=== PATIENT | male | born 1960 | race Caucasian/White ===

== ENCOUNTER 2021-06-21 10:13 | Inpatient (IN) ==
[2021-06-21] MEDS ORDERED: Ondansetron 4 MG/2 ML VIAL IVP PRN (13:31)
[2021-06-21] MEDS ORDERED: Naloxone 0.4 MG/ML INJ IVP PRN (13:31)
[2021-06-21] MEDS ORDERED: Acetaminophen 325 MG TABLET PO PRN (13:31)
[2021-06-21] MEDS ORDERED: Perflutren Lipid Microsphere 1.3 ML in 0.9 % Sodium Chloride 8.7 ML IVP PRN (13:32)
[2021-06-21] MEDS ORDERED: Nitroglycerin 0.4 MG TAB.SUBL SL PRN (13:33)
[2021-06-21] MEDS: 0.9 % Sodium Chloride 1,000 ML IVC SCH (17:27)
[2021-06-22] MEDS ORDERED: *HR* Enoxaparin 40 MG/0.4 ML SYRINGE SQ SCH (06:00)
[2021-06-22 06:05] LABS: Basophils # 0.1 K/mcL (0.0-0.2); Basophils % 0.9 %; Eosinophils # 0.4 K/mcL (0.0-0.6); Eosinophils % 6.1 %; Hemoglobin 13.9 g/dL (12.9-16.9); Immature Granulocytes % 0.1 % (0-4); Lymphocytes # 1.3 K/mcL (0.6-4.6); Mean Corpuscular HGB Conc 32.3 g/dL (31.6-35.5); Mean Corpuscular Hemoglobin 27.9 pg (28.0-33.3); Mean Corpuscular Volume 86.3 fL (83.0-100.0); Mean Platelet Volume 9.1 fL (9.4-12.4); Monocytes # 0.8 K/mcL (0.0-1.3); Monocytes % 12.1 %; Neutrophils # 4.3 K/mcL (1.6-8.9); Platelet Count 321 K/mcL (140-400); Red Blood Count 4.98 M/mcL (4.19-5.50); Segmented Neutrophils % 61.8 %; White Blood Count 6.9 K/mcL (4.3-11.1)
[2021-06-22 06:25] LABS: BUN/Creatinine Ratio 13 (6-26); Blood Urea Nitrogen 16 mg/dL (8-23); Calcium 9.4 mg/dL (8.6-10.3); Carbon Dioxide 26 mEq/L (23-29); Chloride 108 mEq/L (98-107); Chol/HDL Ratio 4.4 (0-4.9); Cholesterol 148 mg/dL (< 200); Glucose 107 mg/dL (70-105); HDL Cholesterol 34 mg/dL (40-59); LDL Cholesterol,Calculated 95 mg/dL (< 100); Osmolality,Calculated 294 (280-300); Potassium 4.1 mEq/L (3.5-5.1); Sodium 141 mEq/L (136-145); Triglycerides 96 mg/dL (< 150); eGFR For African Americans > 60 (> 60); eGFR For Non-African Americans > 60 (> 60)
[2021-06-22] MEDS ORDERED: Aspirin 81 MG TAB.CHEW PO SCH (09:00)
[2021-06-22] MEDS ORDERED: Famotidine 20 MG TABLET PO SCH ×2 (09:00→21:00)
[2021-06-22] MEDS ORDERED: Loratadine 10 MG TABLET PO SCH (09:00)
[2021-06-22 09:26] LABS: Estimated Average Glucose 126 mg/dl
[2021-06-22] MEDS ORDERED: Nitroglycerin 1,000 MCG/5 ML VIAL IV ONE (10:08)
[2021-06-22] MEDS ORDERED: *HR* Heparin 10,000 UNIT/10 ML VIAL ONE (10:08)
[2021-06-22] MEDS ORDERED: 0.9 % Sodium Chloride 2,000 ML ONE (10:08)
[2021-06-22] MEDS ORDERED: Heparin 1,000 UNITS/500 mL 500 ML ONE (10:08)
[2021-06-22] MEDS ORDERED: ISOVUE-370 200 ML INFUS..BTL ONE (10:08)
[2021-06-22] MEDS ORDERED: *HR* FentaNYL (PF) 100 MCG/2 ML VIAL ONE (11:04)
[2021-06-22] MEDS ORDERED: *HR* Midazolam HCl 2 MG/2 ML VIAL ONE (11:04)
[2021-06-22] MEDS: 0.9 % Sodium Chloride 1,000 ML IVC SCH (17:55)
[2021-06-22] MEDS ORDERED: Nitroglycerin 0.4 MG TAB.SUBL SL PRN (19:54)
[2021-06-22] MEDS ORDERED: Acetaminophen 325 MG TABLET PO PRN (19:54)
[2021-06-22] MEDS ORDERED: Ondansetron 4 MG/2 ML VIAL IVP PRN (19:54)
[2021-06-22] MEDS ORDERED: 0.9 % Sodium Chloride 1,000 ML IVC SCH (19:54)
[2021-06-22] MEDS ORDERED: Naloxone 0.4 MG/ML INJ IVP PRN (19:54)
[2021-06-22] MEDS ORDERED: Perflutren Lipid Microsphere 1.3 ML in 0.9 % Sodium Chloride 8.7 ML IVP PRN (19:54)
[2021-06-22 21:09] LABS: Basophils # 0.1 K/mcL (0.0-0.2); Basophils % 0.8 %; Eosinophils # 0.3 K/mcL (0.0-0.6); Eosinophils % 3.2 %; Hematocrit 40.9 % (37.5-50.1); Hemoglobin 14.1 g/dL (12.9-16.9); Immature Granulocytes % 0.2 % (0-4); Lymphocytes # 1.3 K/mcL (0.6-4.6); Lymphocytes % 15.2 %; Mean Corpuscular HGB Conc 34.5 g/dL (31.6-35.5); Mean Corpuscular Hemoglobin 29.1 pg (28.0-33.3); Mean Corpuscular Volume 84.3 fL (83.0-100.0); Mean Platelet Volume 8.9 fL (9.4-12.4); Monocytes # 0.9 K/mcL (0.0-1.3); Monocytes % 10.2 %; Neutrophils # 6.2 K/mcL (1.6-8.9); Platelet Count 329 K/mcL (140-400); Red Blood Count 4.85 M/mcL (4.19-5.50); Red Cell Distribution Width 12.7 % (11.5-14.5); Segmented Neutrophils % 70.4 %; White Blood Count 8.7 K/mcL (4.3-11.1)
[2021-06-22 21:19] LABS: INR 1.2
[2021-06-22 21:21] LABS: Activated Partial Thrombo Time 32.9 Seconds (26.0-36.0)
[2021-06-22 21:25] LABS: BUN/Creatinine Ratio 16 (6-26); Blood Urea Nitrogen 17 mg/dL (8-23); Calcium 9.4 mg/dL (8.6-10.3); Carbon Dioxide 26 mEq/L (23-29); Chloride 108 mEq/L (98-107); Chol/HDL Ratio 4.7 (0-4.9); Cholesterol 149 mg/dL (< 200); Glucose 93 mg/dL (70-105); HDL Cholesterol 32 mg/dL (40-59); LDL Cholesterol,Calculated 92 mg/dL (< 100); Osmolality,Calculated 291 (280-300); Potassium 3.8 mEq/L (3.5-5.1); Sodium 140 mEq/L (136-145); Triglycerides 125 mg/dL (< 150); eGFR For African Americans > 60 (> 60); eGFR For Non-African Americans > 60 (> 60)
[2021-06-22] MEDS: Chlorhexidine Rinse 15 ML MOUTHWASH MM SCH (22:07)
[2021-06-23] MEDS: Chlorhexidine Rinse 15 ML MOUTHWASH MM SCH ×2 (04:47→20:40)
[2021-06-23] MEDS ORDERED: DOBUTamine 1,000 MG/250 ML BAG ONE (05:34)
[2021-06-23] MEDS ORDERED: NiCARdipine 2.5 MG/10 ML Syringe IVPB ONE (05:35)
[2021-06-23] MEDS ORDERED: niCARdipine 20 MG/200 ML MLS IVC ONE (05:46)
[2021-06-23] MEDS ORDERED: Papaverine 60 MG/2 ML VIAL IVP ONE (05:50)
[2021-06-23] MEDS ORDERED: *HR* Norepinephrine 4 MG/4 ML VIAL IVC ONE (05:54)
[2021-06-23] MEDS ORDERED: *HR* Rocuronium Bromide 50 MG/5 ML VIAL ONE (05:54)
[2021-06-23] MEDS ORDERED: *HR* Etomidate 20 MG/10 ML AMPUL IVP ONE (05:54)
[2021-06-23] MEDS ORDERED: Tranexamic Acid 1,000 MG/10 ML VIAL ONE (05:54)
[2021-06-23] MEDS ORDERED: Protamine Sulfate 250 MG/25 ML VIAL IVP ONE (05:59)
[2021-06-23] MEDS ORDERED: CeFAZolin Syr 2,000MG/20 ML 2,000 MG/20 ML SYRINGE IVPB ONE (06:00)
[2021-06-23] MEDS ORDERED: *HR* FentaNYL (PF) 1,000 MCG/20 ML VIAL ONE (06:00)
[2021-06-23] MEDS ORDERED: *HR* Enoxaparin 40 MG/0.4 ML SYRINGE SQ SCH (06:00)
[2021-06-23] MEDS ORDERED: Aspirin 81 MG TAB.CHEW PO ONE (06:00)
[2021-06-23] MEDS ORDERED: *HR* Midazolam HCl 5 MG/5 ML VIAL IVP ONE (06:00)
[2021-06-23 06:11] LABS: Basophils # 0.1 K/mcL (0.0-0.2); Basophils % 0.8 %; Eosinophils # 0.2 K/mcL (0.0-0.6); Hematocrit 42.9 % (37.5-50.1); Hemoglobin 14.5 g/dL (12.9-16.9); Immature Granulocytes % 0.3 % (0-4); Lymphocytes # 1.8 K/mcL (0.6-4.6); Lymphocytes % 22.6 %; Mean Corpuscular HGB Conc 33.8 g/dL (31.6-35.5); Mean Corpuscular Hemoglobin 28.4 pg (28.0-33.3); Mean Corpuscular Volume 84.1 fL (83.0-100.0); Mean Platelet Volume 9.2 fL (9.4-12.4); Monocytes # 0.8 K/mcL (0.0-1.3); Platelet Count 357 K/mcL (140-400); Red Cell Distribution Width 12.7 % (11.5-14.5); Segmented Neutrophils % 63.3 %; White Blood Count 7.9 K/mcL (4.3-11.1)
[2021-06-23 06:19] LABS: BUN/Creatinine Ratio 15 (6-26); Blood Urea Nitrogen 16 mg/dL (8-23); Calcium 9.5 mg/dL (8.6-10.3); Carbon Dioxide 21 mEq/L (23-29); Chloride 107 mEq/L (98-107); Magnesium 1.9 mg/dL (1.6-2.6); Potassium 3.4 mEq/L (3.5-5.1); Sodium 141 mEq/L (136-145); eGFR For African Americans > 60 (> 60); eGFR For Non-African Americans > 60 (> 60)
[2021-06-23] MEDS ORDERED: del Nido Cardioplegia Solution PF ONE ×2 (07:00)
[2021-06-23] MEDS ORDERED: Heparin 15,000 UNIT in 0.9 % Sodium Chloride 500 ML IV ONE ×4 (07:00)
[2021-06-23] MEDS ORDERED: Norepinephrine 4 MG in 0.9 % Sodium Chloride 250 ML IVC PRN (07:00)
[2021-06-23] MEDS ORDERED: Mannitol 25% vial 3.25 GM, Magnesium Sulfate 2 GM, Sodium Bicarbonate 13 MEQ, Potassium... PF ONE ×2 (07:00)
[2021-06-23] MEDS ORDERED: Sodium Bicarbonate 10 MEQ, Potassium Chloride 80 MEQ in CARDIOPLEGIC SOLUTION NO.1 1,00... PF ONE (07:00)
[2021-06-23] MEDS ORDERED: Buckersberg's Blood Cardioplegia PF ONE (07:00)
[2021-06-23 08:46] LABS: Glucose 103 mg/dL (70-105); Osmolality,Calculated 293 (280-300)
[2021-06-23 08:53] LABS: ABG Base Excess -3 mEq/L (-2 to 3); ABG Chloride 110 mEq/L (98-107); ABG Glucose 95 mg/dL (60-95); ABG HCO3 22 mEq/L (21-27); ABG Ionized Calcium 1.22 mmol/L (1.15-1.35); ABG Oxygen Saturation 99 % (95-98); ABG PCO2 38 mmHg (35-45); ABG PH 7.37 pH Units (7.32-7.45); ABG PO2 150 mmHg (85-104); ABG TCO2 23 mEq/L (20-26)
[2021-06-23] MEDS ORDERED: Aspirin 81 MG TAB.CHEW PO SCH (09:00)
[2021-06-23] MEDS ORDERED: Loratadine 10 MG TABLET PO SCH (09:00)
[2021-06-23 09:25] LABS: ABG Base Excess -4 mEq/L (-2 to 3); ABG Chloride 109 mEq/L (98-107); ABG Glucose 120 mg/dL (60-95); ABG HCO3 23 mEq/L (21-27); ABG Oxygen Saturation 100 % (95-98); ABG PCO2 50 mmHg (35-45); ABG PH 7.28 pH Units (7.32-7.45); ABG PO2 336 mmHg (85-104); ABG TCO2 25 mEq/L (20-26)
[2021-06-23 09:45] LABS: ABG Base Excess -4 mEq/L (-2 to 3); ABG Chloride 104 mEq/L (98-107); ABG Glucose 98 mg/dL (60-95); ABG HCO3 22 mEq/L (21-27); ABG Ionized Calcium 0.98 mmol/L (1.15-1.35); ABG Oxygen Saturation 100 % (95-98); ABG PCO2 39 mmHg (35-45); ABG PH 7.36 pH Units (7.32-7.45); ABG PO2 613 mmHg (85-104); ABG TCO2 23 mEq/L (20-26)
[2021-06-23 10:15] LABS: ABG Base Excess -3 mEq/L (-2 to 3); ABG Chloride 104 mEq/L (98-107); ABG Glucose 112 mg/dL (60-95); ABG HCO3 22 mEq/L (21-27); ABG Ionized Calcium 1.02 mmol/L (1.15-1.35); ABG Oxygen Saturation 100 % (95-98); ABG PCO2 34 mmHg (35-45); ABG PH 7.41 pH Units (7.32-7.45); ABG PO2 579 mmHg (85-104); ABG TCO2 23 mEq/L (20-26)
[2021-06-23 10:47] LABS: ABG Base Excess -4 mEq/L (-2 to 3); ABG Chloride 106 mEq/L (98-107); ABG Glucose 112 mg/dL (60-95); ABG HCO3 21 mEq/L (21-27); ABG Ionized Calcium 1.16 mmol/L (1.15-1.35); ABG Oxygen Saturation 100 % (95-98); ABG PCO2 36 mmHg (35-45); ABG PH 7.37 pH Units (7.32-7.45); ABG PO2 527 mmHg (85-104); ABG TCO2 22 mEq/L (20-26)
[2021-06-23] MEDS ORDERED: Potassium Chloride 40 MEQ/200 ML BAG IVPB PRN ×2 (11:24→12:15)
[2021-06-23] MEDS ORDERED: *HR* Dextrose 50 % in Water (Syg) 50 ML SYRINGE IVP PRN ×2 (11:24→12:15)
[2021-06-23] MEDS ORDERED: Insulin Regular, Human 100 UNIT/ML IV PRN ×2 (11:24→12:15)
[2021-06-23] MEDS ORDERED: *HR* FentaNYL (PF) 100 MCG/2 ML VIAL IVP PRN (11:27)
[2021-06-23] MEDS ORDERED: *HR* OxyCODONE/APAP 5/325 TABLET PO PRN (11:27)
[2021-06-23] MEDS ORDERED: Calcium Gluconate 1gm/50mL 1 GM/50 ML BAG IVPB PRN ×2 (11:27→12:15)
[2021-06-23] MEDS ORDERED: Norepinephrine 4 MG/254 ML IV.SOLN IVC SCH ×2 (11:30→12:15)
[2021-06-23] MEDS ORDERED: niCARdipine 20 MG/200 ML MLS IVC SCH (11:30)
[2021-06-23] MEDS ORDERED: DOBUTamine 1,000 MG/250 ML BAG IVC SCH (11:30)
[2021-06-23] MEDS: niCARdipine 20 MG/200 ML MLS IVC SCH ×3 (11:39→20:47)
[2021-06-23 11:52] LABS: ABG Base Excess -4 mEq/L (-2 to 3); ABG HCO3 22 mEq/L (21-27); ABG Oxygen Saturation 92 % (95-98); ABG PCO2 44 mmHg (35-45); ABG PH 7.31 pH Units (7.32-7.45); ABG PO2 70 mmHg (85-104); ABG TCO2 24 mEq/L (20-26); Blood Gas Modality AF; Blood Gas VT 600 cc
[2021-06-23] MEDS ORDERED: Ketorolac 30 MG/ML VIAL IVP SCH (12:00)
[2021-06-23 12:11] LABS: INR 1.3; Prothrombin Time 14.3 Seconds (9.4-12.1)
[2021-06-23 12:14] LABS: Activated Partial Thrombo Time 31.4 Seconds (26.0-36.0)
[2021-06-23] MEDS ORDERED: Ondansetron 4 MG/2 ML VIAL IVP PRN (12:15)
[2021-06-23] MEDS ORDERED: Naloxone 0.4 MG/ML INJ IVP PRN (12:15)
[2021-06-23] MEDS ORDERED: Nitroglycerin 0.4 MG TAB.SUBL SL PRN (12:15)
[2021-06-23 12:18] LABS: BUN/Creatinine Ratio 15 (6-26); Blood Urea Nitrogen 15 mg/dL (8-23); Calcium 9.4 mg/dL (8.6-10.3); Carbon Dioxide 25 mEq/L (23-29); Chloride 105 mEq/L (98-107); Glucose 144 mg/dL (70-105); Magnesium 2.7 mg/dL (1.6-2.6); Osmolality,Calculated 291 (280-300); Potassium 4.2 mEq/L (3.5-5.1); Sodium 139 mEq/L (136-145); eGFR For African Americans > 60 (> 60); eGFR For Non-African Americans > 60 (> 60)
[2021-06-23] MEDS: *HR* FentaNYL (PF) 100 MCG/2 ML VIAL IVP PRN ×2 (12:25→15:16)
[2021-06-23] MEDS: Albumin Human 5% 12.5 GM/250 ML IV.SOLN IVPB PRN ×4 (12:30→14:36)
[2021-06-23 12:33] LABS: Basophils # 0.1 K/mcL (0.0-0.2); Basophils % 0.3 %; Eosinophils # 0.2 K/mcL (0.0-0.6); Eosinophils % 0.8 %; Hematocrit 36.9 % (37.5-50.1); Immature Granulocytes % 0.6 % (0-4); Lymphocytes # 2.3 K/mcL (0.6-4.6); Lymphocytes % 9.9 %; Mean Corpuscular HGB Conc 33.1 g/dL (31.6-35.5); Mean Corpuscular Hemoglobin 28.5 pg (28.0-33.3); Mean Corpuscular Volume 86.2 fL (83.0-100.0); Mean Platelet Volume 9.1 fL (9.4-12.4); Monocytes # 2.1 K/mcL (0.0-1.3); Monocytes % 9.2 %; Platelet Count 306 K/mcL (140-400); Red Blood Count 4.28 M/mcL (4.19-5.50); Red Cell Distribution Width 12.8 % (11.5-14.5); Segmented Neutrophils % 79.2 %
[2021-06-23 12:34] LABS: Hemoglobin 12.2 g/dL (12.9-16.9); Neutrophils # 18.1 K/mcL (1.6-8.9)
[2021-06-23 12:36] LABS: White Blood Count 22.9 K/mcL (4.3-11.1)
[2021-06-23] MEDS: DOBUTamine 1,000 MG/250 ML BAG IVC SCH (12:45)
[2021-06-23] MEDS ORDERED: *HR* LORazepam 2 MG/ML VIAL IVP ONE (12:47)
[2021-06-23] MEDS: *HR* OxyCODONE/APAP 5/325 TABLET PO PRN (13:41)
[2021-06-23 15:53] LABS: ABG Base Excess -5 mEq/L (-2 to 3); ABG HCO3 19 mEq/L (21-27); ABG Oxygen Saturation 96 % (95-98); ABG PCO2 31 mmHg (35-45); ABG PH 7.39 pH Units (7.32-7.45); ABG PO2 78 mmHg (85-104); ABG TCO2 20 mEq/L (20-26); Blood Gas Modality CPAP/PS; Blood Gas Pressure Support 12 cm H2O
[2021-06-23] MEDS: FentaNYL (PF) 1,000 MCG/100 ML IV.SOLN IVC SCH ×2 (15:58→21:02)
[2021-06-23] MEDS: Dexmedetomidine HCl 400 MCG/100 ML MLS IVC SCH ×2 (15:59→20:39)
[2021-06-23] MEDS ORDERED: CeFAZolin 2 GM/100 ML BAG IVPB SCH (16:00)
[2021-06-23] MEDS: CeFAZolin 2 GM/100 ML BAG IVPB SCH ×2 (16:20→23:51)
[2021-06-23] MEDS ORDERED: Heparin 1,000 UNITS/500 mL IV.SOLN IR ONE (16:39)
[2021-06-23] MEDS ORDERED: *HR* Phenylephrine 10 MG/ML VIAL IVC ONE (16:39)
[2021-06-23] MEDS ORDERED: Lidocaine 2% Syringe 100 MG/5 ML IVP ONE (16:39)
[2021-06-23] MEDS ORDERED: Mannitol 25% vial 12.5 GM/50 ML VIAL IVPB ONE (16:39)
[2021-06-23] MEDS ORDERED: D5% in Water 250 ML IV BAG IV ONE (16:39)
[2021-06-23] MEDS ORDERED: Tranexamic Acid 1,000 MG/10 ML VIAL IR ONE (16:39)
[2021-06-23] MEDS ORDERED: *HR* Magnesium Sulfate 2 GM/50 ML PIGGYBACK IVPB ONE (16:39)
[2021-06-23] MEDS ORDERED: *HR* Heparin 10,000 UNIT/10 ML VIAL IR ONE (16:39)
[2021-06-23] MEDS ORDERED: Albumin Human 25% 25 GM/100 ML IV.SOLN IVPB ONE (16:39)
[2021-06-23] MEDS ORDERED: Albumin Human 5% 12.5 GM/250 ML IV.SOLN IVPB ONE ×2 (17:28→18:49)
[2021-06-23] MEDS ORDERED: 0.9 % Sodium Chloride 500 ML IV ONE (18:00)
[2021-06-23] MEDS: Ketorolac 30 MG/ML VIAL IVP SCH ×2 (18:10→23:50)
[2021-06-23] MEDS: Norepinephrine 8 MG/250 ML IV.SOLN IVC SCH (18:51)
[2021-06-23] MEDS: Famotidine 20 MG TABLET PO SCH (19:27)
[2021-06-23 20:09] LABS: ABG Base Excess -3 mEq/L (-2 to 3); ABG HCO3 22 mEq/L (21-27); ABG Oxygen Saturation 99 % (95-98); ABG PCO2 38 mmHg (35-45); ABG PH 7.38 pH Units (7.32-7.45); ABG PO2 124 mmHg (85-104); ABG TCO2 24 mEq/L (20-26); Blood Gas Modality CPAP/PS
[2021-06-23] MEDS ORDERED: Chlorhexidine Rinse 15 ML MOUTHWASH MM SCH (21:00)
[2021-06-24 00:19] LABS: ABG Base Excess -2 mEq/L (-2 to 3); ABG HCO3 23 mEq/L (21-27); ABG Oxygen Saturation 97 % (95-98); ABG PCO2 38 mmHg (35-45); ABG PH 7.39 pH Units (7.32-7.45); ABG PO2 92 mmHg (85-104); ABG TCO2 24 mEq/L (20-26); Blood Gas Modality AF; Blood Gas VT 600 cc
[2021-06-24] MEDS: Dexmedetomidine HCl 400 MCG/100 ML MLS IVC SCH ×2 (00:28→07:32)
[2021-06-24] MEDS: niCARdipine 20 MG/200 ML MLS IVC SCH ×6 (00:41→20:35)
[2021-06-24] MEDS: FentaNYL (PF) 1,000 MCG/100 ML IV.SOLN IVC SCH (03:41)
[2021-06-24] MEDS: *HR* Enoxaparin 40 MG/0.4 ML SYRINGE SQ SCH (03:42)
[2021-06-24 04:04] LABS: INR 1.3; Prothrombin Time 14.4 Seconds (9.4-12.1)
[2021-06-24 04:07] LABS: Activated Partial Thrombo Time 26.9 Seconds (26.0-36.0)
[2021-06-24 04:08] LABS: Basophils % 0.1 %; Hematocrit 28.1 % (37.5-50.1); Immature Granulocytes % 0.3 % (0-4); Lymphocytes # 0.7 K/mcL (0.6-4.6); Lymphocytes % 6.6 %; Mean Corpuscular HGB Conc 32.4 g/dL (31.6-35.5); Mean Corpuscular Volume 86.5 fL (83.0-100.0); Mean Platelet Volume 9.3 fL (9.4-12.4); Monocytes # 1.1 K/mcL (0.0-1.3); Monocytes % 11.3 %; Neutrophils # 8.1 K/mcL (1.6-8.9); Platelet Count 197 K/mcL (140-400); Red Blood Count 3.25 M/mcL (4.19-5.50); Red Cell Distribution Width 12.8 % (11.5-14.5); Segmented Neutrophils % 81.7 %
[2021-06-24 04:09] LABS: ABG Base Excess -3 mEq/L (-2 to 3); ABG HCO3 21 mEq/L (21-27); ABG Oxygen Saturation 96 % (95-98); ABG PCO2 33 mmHg (35-45); ABG PH 7.41 pH Units (7.32-7.45); ABG PO2 81 mmHg (85-104); ABG TCO2 22 mEq/L (20-26); Blood Gas Modality AF; Blood Gas VT 600 cc
[2021-06-24 04:10] LABS: Hemoglobin 9.1 g/dL (12.9-16.9); White Blood Count 9.9 K/mcL (4.3-11.1)
[2021-06-24 04:27] LABS: BUN/Creatinine Ratio 19 (6-26); Blood Urea Nitrogen 20 mg/dL (8-23); Calcium 8.8 mg/dL (8.6-10.3); Carbon Dioxide 23 mEq/L (23-29); Chloride 109 mEq/L (98-107); Glucose 138 mg/dL (70-105); Magnesium 2.1 mg/dL (1.6-2.6); Osmolality,Calculated 293 (280-300); Potassium 4.2 mEq/L (3.5-5.1); Sodium 139 mEq/L (136-145); eGFR For African Americans > 60 (> 60); eGFR For Non-African Americans > 60 (> 60)
[2021-06-24] MEDS: Ketorolac 30 MG/ML VIAL IVP SCH ×2 (05:24→11:35)
[2021-06-24] MEDS: Pantoprazole 40 MG VIAL IVP SCH (08:56)
[2021-06-24] MEDS: Chlorhexidine Rinse 15 ML MOUTHWASH MM SCH ×2 (08:57→20:35)
[2021-06-24] MEDS ORDERED: Pantoprazole 40 MG VIAL IVP SCH (09:00)
[2021-06-24] MEDS ORDERED: Aspirin Enteric Coated 81 MG Tablet PO SCH (09:00)
[2021-06-24] MEDS: Aspirin Enteric Coated 81 MG Tablet PO SCH (09:26)
[2021-06-24] MEDS: Loratadine 10 MG TABLET PO SCH (09:26)
[2021-06-24] MEDS: Famotidine 20 MG TABLET PO SCH ×2 (09:27→20:34)
[2021-06-24] MEDS: *HR* OxyCODONE/APAP 5/325 TABLET PO PRN ×3 (10:24→20:02)
[2021-06-24] MEDS: Insulin LISPRO 300 UNITS/3 ML VIAL SUBQ SCH ×2 (11:36→17:02)
[2021-06-24] MEDS ORDERED: Furosemide 20 MG/2 ML VIAL IVP ONE (12:37)
[2021-06-24] MEDS: DOBUTamine 1,000 MG/250 ML BAG IVC SCH (14:21)
[2021-06-24] MEDS: Norepinephrine 8 MG/250 ML IV.SOLN IVC SCH (16:18)
[2021-06-24] MEDS: Acetaminophen 325 MG TABLET PO PRN (20:54)
[2021-06-24] MEDS ORDERED: Insulin LISPRO 300 UNITS/3 ML VIAL SUBQ SCH (21:00)
[2021-06-25] MEDS: *HR* OxyCODONE/APAP 5/325 TABLET PO PRN ×5 (00:05→19:47)
[2021-06-25] MEDS: Acetaminophen 325 MG TABLET PO PRN ×2 (03:23→12:07)
[2021-06-25 03:50] LABS: Basophils % 0.3 %; Eosinophils % 0.2 %; Hematocrit 27.3 % (37.5-50.1); Hemoglobin 9.2 g/dL (12.9-16.9); Immature Granulocytes % 0.4 % (0-4); Lymphocytes # 1.1 K/mcL (0.6-4.6); Lymphocytes % 9.5 %; Mean Corpuscular HGB Conc 33.7 g/dL (31.6-35.5); Mean Corpuscular Hemoglobin 29.2 pg (28.0-33.3); Mean Corpuscular Volume 86.7 fL (83.0-100.0); Mean Platelet Volume 9.5 fL (9.4-12.4); Monocytes # 1.6 K/mcL (0.0-1.3); Monocytes % 13.9 %; Neutrophils # 8.5 K/mcL (1.6-8.9); Platelet Count 221 K/mcL (140-400); Red Blood Count 3.15 M/mcL (4.19-5.50); Red Cell Distribution Width 13.2 % (11.5-14.5); Segmented Neutrophils % 75.7 %; White Blood Count 11.2 K/mcL (4.3-11.1)
[2021-06-25] MEDS: niCARdipine 20 MG/200 ML MLS IVC SCH ×3 (04:10→08:38)
[2021-06-25 04:11] LABS: BUN/Creatinine Ratio 22 (6-26); Blood Urea Nitrogen 25 mg/dL (8-23); Calcium 8.8 mg/dL (8.6-10.3); Carbon Dioxide 25 mEq/L (23-29); Chloride 105 mEq/L (98-107); Glucose 117 mg/dL (70-105); Osmolality,Calculated 287 (280-300); Potassium 3.6 mEq/L (3.5-5.1); Sodium 136 mEq/L (136-145); eGFR For African Americans > 60 (> 60); eGFR For Non-African Americans > 60 (> 60)
[2021-06-25] MEDS: *HR* Enoxaparin 40 MG/0.4 ML SYRINGE SQ SCH (05:12)
[2021-06-25] MEDS: Famotidine 20 MG TABLET PO SCH ×2 (08:59→20:27)
[2021-06-25] MEDS: Loratadine 10 MG TABLET PO SCH (08:59)
[2021-06-25] MEDS: Pantoprazole 40 MG VIAL IVP SCH (09:00)
[2021-06-25] MEDS: Chlorhexidine Rinse 15 ML MOUTHWASH MM SCH (09:00)
[2021-06-25] MEDS: Aspirin Enteric Coated 81 MG Tablet PO SCH (09:00)
[2021-06-25] MEDS: Insulin LISPRO 300 UNITS/3 ML VIAL SUBQ SCH (09:27)
[2021-06-25] MEDS ORDERED: Ondansetron 4 MG/2 ML VIAL IVP PRN (09:29)
[2021-06-25] MEDS ORDERED: Nitroglycerin 0.4 MG TAB.SUBL SL PRN (09:29)
[2021-06-25] MEDS ORDERED: Potassium Chloride 40 MEQ/200 ML BAG IVPB PRN (09:29)
[2021-06-25] MEDS ORDERED: Naloxone 0.4 MG/ML INJ IVP PRN (09:29)
[2021-06-25] MEDS: *HR* Heparin 5,000 UNIT/ML VIAL SQ SCH (18:01)
[2021-06-26] MEDS: *HR* OxyCODONE/APAP 5/325 TABLET PO PRN ×3 (03:43→18:02)
[2021-06-26] MEDS: *HR* Heparin 5,000 UNIT/ML VIAL SQ SCH ×2 (06:10→18:03)
[2021-06-26] MEDS: Acetaminophen 325 MG TABLET PO PRN ×3 (06:10→20:49)
[2021-06-26] MEDS ORDERED: Albuterol 2.5 MG/3 ML NEBULIZER ONE (07:35)
[2021-06-26] MEDS: Loratadine 10 MG TABLET PO SCH (07:52)
[2021-06-26] MEDS: Aspirin Enteric Coated 81 MG Tablet PO SCH (07:52)
[2021-06-26] MEDS: Famotidine 20 MG TABLET PO SCH ×2 (07:53→20:50)
[2021-06-26 08:09] LABS: Basophils % 0.3 %; Eosinophils # 0.1 K/mcL (0.0-0.6); Eosinophils % 1.1 %; Hematocrit 27.9 % (37.5-50.1); Hemoglobin 9.3 g/dL (12.9-16.9); Immature Granulocytes % 0.3 % (0-4); Lymphocytes # 1.5 K/mcL (0.6-4.6); Mean Corpuscular HGB Conc 33.3 g/dL (31.6-35.5); Mean Platelet Volume 9.4 fL (9.4-12.4); Monocytes # 1.1 K/mcL (0.0-1.3); Monocytes % 11.5 %; Neutrophils # 6.6 K/mcL (1.6-8.9); Platelet Count 235 K/mcL (140-400); Red Blood Count 3.32 M/mcL (4.19-5.50); Red Cell Distribution Width 12.9 % (11.5-14.5); Segmented Neutrophils % 70.8 %; White Blood Count 9.3 K/mcL (4.3-11.1)
[2021-06-26 08:28] LABS: BUN/Creatinine Ratio 24 (6-26); Blood Urea Nitrogen 25 mg/dL (8-23); Calcium 8.8 mg/dL (8.6-10.3); Carbon Dioxide 25 mEq/L (23-29); Chloride 104 mEq/L (98-107); Glucose 98 mg/dL (70-105); Osmolality,Calculated 286 (280-300); Potassium 3.5 mEq/L (3.5-5.1); Sodium 136 mEq/L (136-145); eGFR For African Americans > 60 (> 60); eGFR For Non-African Americans > 60 (> 60)
[2021-06-26] MEDS: Albuterol 2.5 MG/3 ML NEBULIZER IH SCH ×3 (08:45→19:58)
[2021-06-26] MEDS ORDERED: OMALIZUMAB 150 MG/ML SYRINGE SQ SCH ×2 (09:00)
[2021-06-26] MEDS: Azithromycin 500 MG in 0.9 % Sodium Chloride 250 ML IVPB SCH (14:55)
[2021-06-26] MEDS: cefTRIAXone 1,000 MG in 0.9 % Sodium Chloride 10 ML IVPB SCH (14:58)
[2021-06-27] MEDS: *HR* OxyCODONE/APAP 5/325 TABLET PO PRN ×3 (03:31→22:26)
[2021-06-27] MEDS: Albuterol 2.5 MG/3 ML NEBULIZER IH SCH ×4 (03:46→20:00)
[2021-06-27] MEDS: *HR* Heparin 5,000 UNIT/ML VIAL SQ SCH ×2 (05:07→16:52)
[2021-06-27] MEDS: Acetaminophen 325 MG TABLET PO PRN ×2 (05:08→09:00)
[2021-06-27 07:22] LABS: Basophils % 0.4 %; Eosinophils # 0.4 K/mcL (0.0-0.6); Hematocrit 31.3 % (37.5-50.1); Hemoglobin 10.4 g/dL (12.9-16.9); Immature Granulocytes % 0.3 % (0-4); Lymphocytes # 1.8 K/mcL (0.6-4.6); Mean Corpuscular HGB Conc 33.2 g/dL (31.6-35.5); Mean Corpuscular Volume 84.4 fL (83.0-100.0); Mean Platelet Volume 9.3 fL (9.4-12.4); Monocytes # 1.1 K/mcL (0.0-1.3); Monocytes % 11.5 %; Neutrophils # 6.5 K/mcL (1.6-8.9); Platelet Count 322 K/mcL (140-400); Red Blood Count 3.71 M/mcL (4.19-5.50); Red Cell Distribution Width 13.1 % (11.5-14.5); Segmented Neutrophils % 65.8 %; White Blood Count 9.9 K/mcL (4.3-11.1)
[2021-06-27 07:30] LABS: ABG Base Excess -3 mEq/L (-2 to 3); ABG Chloride 107 mEq/L (98-107); ABG Glucose 118 mg/dL (60-95); ABG HCO3 23 mEq/L (21-27); ABG Ionized Calcium 1.29 mmol/L (1.15-1.35); ABG Oxygen Saturation 100 % (95-98); ABG PCO2 43 mmHg (35-45); ABG PH 7.34 pH Units (7.32-7.45); ABG PO2 195 mmHg (85-104); ABG TCO2 25 mEq/L (20-26)
[2021-06-27 07:43] LABS: BUN/Creatinine Ratio 20 (6-26); Blood Urea Nitrogen 19 mg/dL (8-23); Carbon Dioxide 23 mEq/L (23-29); Chloride 107 mEq/L (98-107); Glucose 98 mg/dL (70-105); Osmolality,Calculated 292 (280-300); Sodium 140 mEq/L (136-145); eGFR For African Americans > 60 (> 60); eGFR For Non-African Americans > 60 (> 60)
[2021-06-27] MEDS: Aspirin Enteric Coated 81 MG Tablet PO SCH (08:20)
[2021-06-27] MEDS: Famotidine 20 MG TABLET PO SCH ×2 (08:20→20:43)
[2021-06-27] MEDS: Loratadine 10 MG TABLET PO SCH (08:20)
[2021-06-27] MEDS: Metoprolol XL (24 HR) Succ 25 MG TAB.ER.24H PO SCH ×2 (08:21→11:35)
[2021-06-27] MEDS: cefTRIAXone 1,000 MG in 0.9 % Sodium Chloride 10 ML IVPB SCH (08:24)
[2021-06-27] MEDS: Azithromycin 500 MG in 0.9 % Sodium Chloride 250 ML IVPB SCH (08:29)
[2021-06-27] MEDS: Furosemide 20 MG/2 ML VIAL IVP SCH (12:47)
[2021-06-27] MEDS ORDERED: Metoprolol XL (24 HR) Succ 25 MG TAB.ER.24H PO ONE (17:27)
[2021-06-27] MEDS ORDERED: *HR* Metoprolol 5 MG/5 ML VIAL IVP PRN (21:01)
[2021-06-28] MEDS: Albuterol 2.5 MG/3 ML NEBULIZER IH SCH ×4 (04:13→20:02)
[2021-06-28] MEDS: *HR* Heparin 5,000 UNIT/ML VIAL SQ SCH ×2 (04:57→17:47)
[2021-06-28] MEDS: *HR* OxyCODONE/APAP 5/325 TABLET PO PRN ×4 (04:57→22:11)
[2021-06-28 05:49] LABS: Basophils # 0.1 K/mcL (0.0-0.2); Basophils % 0.6 %; Eosinophils # 0.6 K/mcL (0.0-0.6); Eosinophils % 6.5 %; Hematocrit 30.7 % (37.5-50.1); Hemoglobin 10.1 g/dL (12.9-16.9); Immature Granulocytes % 0.4 % (0-4); Lymphocytes # 1.5 K/mcL (0.6-4.6); Lymphocytes % 16.7 %; Mean Corpuscular HGB Conc 32.9 g/dL (31.6-35.5); Mean Corpuscular Hemoglobin 27.7 pg (28.0-33.3); Mean Corpuscular Volume 84.3 fL (83.0-100.0); Mean Platelet Volume 9.5 fL (9.4-12.4); Monocytes # 1.1 K/mcL (0.0-1.3); Monocytes % 12.2 %; Neutrophils # 5.7 K/mcL (1.6-8.9); Platelet Count 359 K/mcL (140-400); Red Blood Count 3.64 M/mcL (4.19-5.50); Red Cell Distribution Width 13.1 % (11.5-14.5); Segmented Neutrophils % 63.6 %
[2021-06-28 06:06] LABS: BUN/Creatinine Ratio 20 (6-26); Blood Urea Nitrogen 21 mg/dL (8-23); Calcium 9.1 mg/dL (8.6-10.3); Carbon Dioxide 26 mEq/L (23-29); Chloride 105 mEq/L (98-107); Glucose 100 mg/dL (70-105); Magnesium 1.9 mg/dL (1.6-2.6); Osmolality,Calculated 293 (280-300); Sodium 140 mEq/L (136-145); eGFR For African Americans > 60 (> 60); eGFR For Non-African Americans > 60 (> 60)
[2021-06-28] MEDS: Aspirin Enteric Coated 81 MG Tablet PO SCH (09:13)
[2021-06-28] MEDS: Famotidine 20 MG TABLET PO SCH ×2 (09:14→20:33)
[2021-06-28] MEDS: Loratadine 10 MG TABLET PO SCH (09:14)
[2021-06-28] MEDS: Metoprolol XL (24 HR) Succ 25 MG TAB.ER.24H PO SCH (09:14)
[2021-06-28] MEDS: cefTRIAXone 1,000 MG in 0.9 % Sodium Chloride 10 ML IVPB SCH (09:15)
[2021-06-28] MEDS: Furosemide 20 MG/2 ML VIAL IVP SCH (09:15)
[2021-06-28] MEDS: Azithromycin 500 MG in 0.9 % Sodium Chloride 250 ML IVPB SCH (09:16)
[2021-06-28] MEDS ORDERED: *HR* Metoprolol 5 MG/5 ML VIAL IVP PRN (09:55)
[2021-06-28] MEDS ORDERED: Amiodarone Premix 360 MG/200 ML BAG IVC ONE (10:12)
[2021-06-28] MEDS ORDERED: Amiodarone Premix 150 MG/100 ML BAG IVPB ONE (10:12)
[2021-06-28] MEDS ORDERED: Amiodarone Premix 360 MG/200 ML BAG IVC SCH (16:13)
[2021-06-28] MEDS: *HR* Amiodarone 200 MG TABLET PO SCH (20:33)
[2021-06-29] MEDS: *HR* OxyCODONE/APAP 5/325 TABLET PO PRN (02:34)
[2021-06-29] MEDS: Albuterol 2.5 MG/3 ML NEBULIZER IH SCH ×2 (03:51→07:27)
[2021-06-29] MEDS: *HR* Heparin 5,000 UNIT/ML VIAL SQ SCH (05:20)
[2021-06-29 07:41] LABS: Basophils % 0.5 %; Eosinophils # 0.5 K/mcL (0.0-0.6); Eosinophils % 5.4 %; Hematocrit 32.3 % (37.5-50.1); Hemoglobin 10.6 g/dL (12.9-16.9); Immature Granulocytes % 0.5 % (0-4); Lymphocytes # 1.5 K/mcL (0.6-4.6); Lymphocytes % 16.7 %; Mean Corpuscular HGB Conc 32.8 g/dL (31.6-35.5); Mean Corpuscular Hemoglobin 27.7 pg (28.0-33.3); Mean Corpuscular Volume 84.3 fL (83.0-100.0); Mean Platelet Volume 9.9 fL (9.4-12.4); Monocytes % 11.9 %; Neutrophils # 5.7 K/mcL (1.6-8.9); Platelet Count 399 K/mcL (140-400); Red Blood Count 3.83 M/mcL (4.19-5.50); Red Cell Distribution Width 13.1 % (11.5-14.5); White Blood Count 8.7 K/mcL (4.3-11.1)
[2021-06-29 07:59] LABS: BUN/Creatinine Ratio 21 (6-26); Blood Urea Nitrogen 21 mg/dL (8-23); Calcium 9.1 mg/dL (8.6-10.3); Carbon Dioxide 24 mEq/L (23-29); Chloride 106 mEq/L (98-107); Glucose 93 mg/dL (70-105); Magnesium 1.9 mg/dL (1.6-2.6); Osmolality,Calculated 293 (280-300); Potassium 3.7 mEq/L (3.5-5.1); Sodium 140 mEq/L (136-145); eGFR For African Americans > 60 (> 60); eGFR For Non-African Americans > 60 (> 60)
[2021-06-29] MEDS: Metoprolol XL (24 HR) Succ 25 MG TAB.ER.24H PO SCH (08:01)
[2021-06-29] MEDS: Aspirin Enteric Coated 81 MG Tablet PO SCH (08:01)
[2021-06-29] MEDS: Loratadine 10 MG TABLET PO SCH (08:02)
[2021-06-29] MEDS: Acetaminophen 325 MG TABLET PO PRN (08:02)
[2021-06-29] MEDS: *HR* Amiodarone 200 MG TABLET PO SCH (08:02)
[2021-06-29] MEDS: Famotidine 20 MG TABLET PO SCH (08:02)
[2021-06-29] MEDS: cefTRIAXone 1,000 MG in 0.9 % Sodium Chloride 10 ML IVPB SCH (08:02)
[2021-06-29] MEDS: Azithromycin 500 MG in 0.9 % Sodium Chloride 250 ML IVPB SCH (08:03)
[2021-06-29] MEDS: Furosemide 20 MG/2 ML VIAL IVP SCH (08:04)
[2021-06-29 11:08] VITALS: BP 114/79; PULSE 73; TEMP 98.1; O2SAT 96
== END 2021-06-29 14:12 | disposition home or self-care (01) | DRG 233 ==
LOC: 3NENU → SUATTDRO 11:19 → ICNU 06-22 19:08 → SUATTDRO 06-23 08:16 → 2NNU 06-25 22:27
PROVIDERS: ADMIT Internal Medicine Cardiovascular Disease; ATTEND Internal Medicine